=== PATIENT | female | born 1995 | race Native Hawaiian/Other Pacific Islander ===

== ENCOUNTER 2016-12-02 21:22 | Emergency (ER) | payer OTHER ==
[2016-12-02] MEDS: Sodium Chloride 0.9% 1,000 ML IV STA ×2 (22:04→23:46)
[2016-12-02 22:22] LABS: BASO % 0.3 % (0.0-2.0); EOS % 0.2 % (0.0-4.0); HEMATOCRIT 43.1 % (34.0-47.0); LYMPH # 1.2 K/uL (1.0-4.3); LYMPH % 13.9 % (20.0-40.0); MEAN CORPUSCULAR HEMOGLOBIN 30.2 pg (27.0-31.0); MONO # 0.2 K/uL (0.0-0.8); MONO % 2.8 % (0.0-10.0); NEUT # 7.1 K/uL (1.8-7.0); NEUT % 82.8 % (50.0-75.0); RED CELL DISTRIBUTION WIDTH 13.2 % (11.5-14.5); WHITE BLOOD COUNT 8.5 K/uL (4.8-10.8)
[2016-12-02 22:38] LABS: ALB/GLOB RATIO 1.5 (1.0-2.1); ALKALINE PHOSPHATASE 66 U/L (38-126); ALT/SGPT 24 U/L (9-52); AST/SGOT 19 U/L (14-36); BILIRUBIN,TOTAL 0.7 mg/dl (0.2-1.3); BLOOD UREA NITROGEN 22 mg/dl (7-17); CALCIUM 9.9 mg/dL (8.4-10.2); CARBON DIOXIDE 22 mmol/L (22-30); CHLORIDE 104 mmol/L (98-107); GFR AFRICAN-AMERICAN > 60; GLUCOSE,RANDOM 115 mg/dL (65-105); LIPASE 79 U/L (23-300); POTASSIUM 3.7 MMOL/L (3.6-5.0); SODIUM 147 mmol/l (132-148); TOTAL PROTEIN 8.6 G/DL (6.3-8.2)
--- NOTE | 2016-12-02 23:39 | ED PDOC ---
HPI: Abdomen Time Seen by Provider: 12/02/16 21:43 Chief Complaint (Nursing): GI Problem Chief Complaint (Provider): Abdominal pain, nausea, vomiting, diarrhea History Per: Patient History/Exam Limitations: no limitations Onset/Duration Of Symptoms: Hrs (x 2 hours) Quality Of Discomfort: Cramping Associated Symptoms: Nausea, Vomiting, Diarrhea Additional Complaint(s): Patient is a 21 y/o Ethiopian female with no past medical history, who presents to the ED complaining of abdominal pain, nausea, vomiting and diarrhea x 2 hours. She notes that the pain was of acute onset after eating [employer] and noodles left over from 24 hours prior. She reports greater than 24 hours of non bloody non bilious vomiting, as well as non bloody diarrhea and diffusive cramping. Patient denies any further symptoms or complaints. PMD: FAMILY PROVIDER,NO Against Medical Advice - AMA Patient Left Against Medical Advice: The patient declines admission to the hospital and wishes to leave the Emergency Department. This action is against my medical advice. This decision was made with informed refusal. The patient was told that admission to the hospital is necessary. Explanation of the reasons why were discussed. The risks of leaving were explained to the patient and include, but are not limited to, worsening of known or currently unknown conditions, permanent disability and from undiagnosed or untreated conditions. The patient has the capacity to make this informed decision and understands my explanation of the current medical problem and risks of leaving. The patient voluntarily accepts these risks and signed an AMA form documenting our conversation. The patient was given the opportunity to ask questions and reconsider. The patient was encouraged to return to the Emergency Department at any time for further care. 12/03/16 23:40 -Patient noted to be persistently tachycardic and Hypertensive. Provider ordered additional IV fluids which the patient refused. She also refused CT of the neck to further work up the neck mass. Patient has requested at this point to sign out against medical advice Past Medical History Reviewed: Historical Data, Nursing Documentation, Vital Signs Vital Signs: Last Vital Signs Temp 98.6 F 12/02/16 23:46 Pulse 103 H 12/02/16 23:46 Resp 17 12/02/16 23:46 BP 93/60 L 12/02/16 23:46 Pulse Ox 99 12/03/16 00:22 - Medical History PMH: No Chronic Diseases - Surgical History Surgical History: No Surg Hx - Family History Family History: States: No Known Family Hx - Social History Current smoker - smoking cessation education provided: Yes (Light smoker, < 10 cigarettes daily) Alcohol: None Drugs: Denies - Home Medications Home Medications: Ambulatory Orders Medication Instructions Recorded Dicyclomine [Bentyl] 20 mg PO Q12 PRN #20 tab 12/02/16 Ondansetron ODT [Zofran ODT] 4 mg PO Q6 PRN #16 odt 12/02/16 - Allergies Allergies/Adverse Reactions: Allergies Allergy/AdvReac Type Severity Reaction Status Date / Time No Known Allergies Allergy Verified 12/02/16 21:32 Review of Systems ROS Statement: Except As Marked, All Systems Reviewed And Found Negative Gastrointestinal: Positive for: Nausea, Vomiting, Abdominal Pain, Diarrhea Physical Exam - Reviewed Nursing Documentation Reviewed: Yes Vital Signs Reviewed: Yes - Physical Exam Appears: Positive for: Non-toxic, In Acute Distress (mild distress) Head Exam: Positive for: ATRAUMATIC, NORMOCEPHALIC Skin: Positive for: Normal Color, Warm, Dry Eye Exam: Positive for: Normal appearance, EOMI, PERRL Neck: Positive for: Normal (right two centimeter ecchymotic lesion, edematous and tender), Painless ROM, Supple Cardiovascular/Chest: Positive for: Regular Rate, Rhythm. Negative for: Murmur Respiratory: Positive for: Normal Breath Sounds. Negative for: Respiratory Distress Gastrointestinal/Abdominal: Positive for: Normal Exam, Soft. Negative for: Tenderness Back: Positive for: Normal Inspection Extremity: Positive for: Normal ROM. Negative for: Pedal Edema, Deformity Neurologic/Psych: Positive for: Alert, Oriented (x3). Negative for: Motor/ Sensory Deficits - Laboratory Results Result Diagrams: 12/02/16 22:18 12/02/16 22:18 - ECG O2 Sat by Pulse Oximetry: 99 (RA) Pulse Ox Interpretation: Normal Medical Decision Making Medical Decision Making: Time: 21:55 Initial Impression: 21 y/o Ethiopian female with acute nausea, vomiting, diarrhea , abdominal pain, and neck lesion Initial Plan: -Labs -EKG -Urine -Urine dipstick -Dicyclomine 20mg PO -Morphine 2mg IV -Sodium Chloride IV 1000 mls/hr -Ondansetron 4 mg IV -Heplock Insertion -Reevlautation -Patient refused a CT of neck, reports that she prefers to follow up as out patient for neck lesion as she is concerned about her bill due to insurance status. Please refer to AMA section for further notation. 23:15 -Labs reviewed, No clinically significant abnormalities. Patient reports marked improvement of symptoms -Patient will sign out AMA but assured provider she will follow up with ENT as referred for neck lesion 23:40 -At present, patient has elected to sign out against medical advice Diagnosis: Acute gastroenteritis, condition improved, Neck Mass Clinical Impression: Gastroenteritis, condition improved Pt provided Rx for Dicyclomine 20 mg and Zofran ODT 4mg. Counseling was provided and all questions were answered regarding diagnosis and need for follow up with ENT specialist. There is agreement to discharge plan. Return if symptoms persist or worsen. Scribe Attestation: Documented by Marquita Robles, acting as a scribe for Stanislaw Holbrook MD Provider Scribe Attestation: All medical record entries made by the Scribe were at my direction and personally dictated by me. I have reviewed the chart and agree that the record accurately reflects my personal performance of the history, physical exam, medical decision making, and the department course for this patient. I have also personally directed, reviewed, and agree with the discharge instructions and disposition. Disposition - Clinical Impression Clinical Impression: Gastroenteritis, Neck mass - Disposition Referrals: [facility] [Outside] Memo Pineda MD [Staff Provider] - Disposition: Routine/Home Disposition Time: 23:40 Condition: IMPROVED Prescriptions: Dicyclomine [Bentyl] 20 mg PO Q12 PRN #20 tab PRN Reason: abdominal pain/diarrhea Ondansetron ODT [Zofran ODT] 4 mg PO Q6 PRN #16 odt PRN Reason: Nausea/Vomiting Instructions: Gastroenteritis (ED) Forms: [employer] ([place]ese)
[2016-12-02 23:47] VITALS: BP 93/60; PULSE 103; RESP 17; TEMP 98.6
[2016-12-02 23:49] VITALS: O2SAT 99
== END 2016-12-02 23:48 | disposition left against medical advice (07) ==
LOC: EDBD 21:22 → H.ER 21:22
DX: K52.9 Noninfective gastroenteritis and colitis, unspecified (principal)
CPT/HCPCS: 80053; 83690; 85025; 96360; 99284; J2405; J7040

== ENCOUNTER 2017-06-18 15:49 | Emergency (ER) | payer SELFPAY ==
[2017-06-18 15:57] VITALS: BP 123/86; PULSE 89; RESP 16; TEMP 98.5; O2SAT 100
--- NOTE | 2017-06-18 16:21 | ED PDOC ---
History of Present Illness History of Present Illness: 21yo female, presents to ED for evaluation of cough, cold and congestion for the past 2 days. She reports associated productive cough but denies any fever, chills, chest pain, shortness of breath. Patient denies any known sick contacts and states she has not taken any medication for her symptoms. She has no other medical complaints. HPI: Influenza Time Seen by Provider: 06/18/17 16:00 Chief Complaint: Cough, Cold, Congestion Chief Complaint (Provider): Cough, congestion History Per: Patient Exam Limitations: physical impairment Have you had recent travel within the past 21 days to any of: No Onset/Duration Of Symptoms: Days Symptoms include: cough, nasal congestion. denies: fever, chest pain, difficulty breathing Sick Contacts (Context): None Past Medical History Reviewed: Historical Data, Nursing Documentation, Vital Signs Vital Signs: Last Vital Signs Temp 98.5 F 06/18/17 15:55 Pulse 89 06/18/17 15:55 Resp 16 06/18/17 15:55 BP 123/86 06/18/17 15:55 Pulse Ox 100 06/18/17 15:55 - Medical History PMH: No Chronic Diseases - Surgical History Surgical History: No Surg Hx - Family History Family History: States: No Known Family Hx - Home Medications Home Medications: Ambulatory Orders Medication Instructions Recorded Dicyclomine [Bentyl] 20 mg PO Q12 PRN #20 tab 12/02/16 Ondansetron ODT [Zofran ODT] 4 mg PO Q6 PRN #16 odt 12/02/16 Guaifen/Phenyleph/Acetaminophn 1 tab PO BID #14 tab 06/18/17 [Mucinex Fast-Max Cold & Sinus 325 mg-200 mg-5] - Allergies Allergies/Adverse Reactions: Allergies Allergy/AdvReac Type Severity Reaction Status Date / Time No Known Allergies Allergy Verified 12/02/16 21:32 Review of Systems ROS Statement: Except As Marked, All Systems Reviewed And Found Negative Constitutional: Negative for: Fever, Chills ENT: Positive for: Nose Congestion Cardiovascular: Negative for: Palpitations Respiratory: Positive for: Cough, Sputum. Negative for: Shortness of Breath Physical Exam - Reviewed Nursing Documentation Reviewed: Yes Vital Signs Reviewed: Yes - Physical Exam Appears: Positive for: Non-toxic, No Acute Distress Head Exam: Positive for: ATRAUMATIC, NORMAL INSPECTION, NORMOCEPHALIC Skin: Positive for: Normal Color Eye Exam: Positive for: Normal appearance, EOMI, PERRL ENT: Positive for: Normal ENT Inspection, TM Is/Are (clear), Nasal Congestion. Negative for: Pharyngeal Erythema, Tonsillar Exudate, Tonsillar Swelling Neck: Positive for: Normal, Supple Cardiovascular/Chest: Positive for: Regular Rate, Rhythm Respiratory: Positive for: Normal Breath Sounds. Negative for: Wheezing, Respiratory Distress Neurologic/Psych: Positive for: Alert, Oriented. Negative for: Motor/Sensory Deficits Medical Decision Making Medical Decision Making: Impression: URI, viral illness Plan: -- Patient with a well exam, stable for discharge home. Patient instructed to take medication as prescribed, stay well hydrated and to follow up with PCP in 2 -3 days. Informed to return to the ER if symptoms worsen or new symptoms arise. Patient expresses understanding and is agreeable with plan. Scribe Attestation: Documented by Maru Jacobsen, acting as a scribe for HOWARD Jordan. Provider Scribe Attestation: All medical record entries made by the Scribe were at my direction and personally dictated by me. I have reviewed the chart and agree that the record accurately reflects my personal performance of the history, physical exam, medical decision making, and the department course for this patient. I have also personally directed, reviewed, and agree with the discharge instructions and disposition. - ECG O2 Sat by Pulse Oximetry: 100 Disposition - Clinical Impression Clinical Impression: Viral URI - Disposition Disposition: Routine/Home Disposition Time: 16:23 Condition: STABLE Prescriptions: Guaifen/Phenyleph/Acetaminophn [Mucinex Fast-Max Cold & Sinus 325 mg-200 mg-5] 1 tab PO BID #14 tab Instructions: Viral Upper Respiratory Infection, Adult (DC) Forms: [employer] ([place] Islander)
== END 2017-06-18 16:53 | disposition home or self-care (01) ==
LOC: H.ER 15:49
DX: J06.9 Acute upper respiratory infection, unspecified (principal)